=== PATIENT | female | born 1990 | race African-American/Black ===

== ENCOUNTER 2020-11-11 19:31 | Emergency (ER) | payer MEDICAID ==
[~2020-11-11] VITALS: Ht 154.9 cm; Wt 105.0 kg
[2020-11-11] MEDS ORDERED: NEOM10SO12 LEFT EAR (23:48)
[2020-11-11] MEDS ORDERED: IBUP-2029 MT (23:48)
[2020-11-11] MEDS ORDERED: AMOX-494 MT (23:48)
[2020-11-11 23:57] VITALS: BP 130/85
== END 2020-11-12 00:12 | disposition home or self-care (01) ==
LOC: ER 19:31
DX: H66.92 Otitis media, unspecified, left ear (principal); J45.909 Unspecified asthma, uncomplicated
CPT/HCPCS: 81025; 99283; Z7610

== ENCOUNTER 2021-04-01 18:38 | Emergency (ER) | payer MEDICAID ==
[~2021-04-01] VITALS: Ht 154.9 cm; Wt 120.0 kg
[~2021-04-01 18:38] MED LIST: AMOX-494 MT; IBUP-2029 MT; NEOM10SO12 LEFT EAR
[2021-04-01 21:34] VITALS: BP 120/80
== END 2021-04-01 21:35 | disposition home or self-care (01) ==
LOC: ER 18:38
DX: R51.9 Headache, unspecified (principal); F17.210 Nicotine dependence, cigarettes, uncomplicated; J45.909 Unspecified asthma, uncomplicated; Z71.6 Tobacco abuse counseling
CPT/HCPCS: 87070; 87430; 99283

== ENCOUNTER 2024-06-25 12:21 | Emergency (ER) | payer MEDICAID ==
[~2024-06-25] VITALS: Ht 157.5 cm; Wt 113.0 kg
[~2024-06-25 12:21] MED LIST changes: -NEOM10SO12 LEFT EAR; +NEOM10SO24 LEFT EAR
[2024-06-25 12:57] VITALS: O2SAT 100
[2024-06-25] MEDS ORDERED: ALBU18HF2 IH (15:32)
[2024-06-25 16:00] VITALS: BP 123/80; PULSE 88; RESP 18; TEMP 36.55848; O2SAT 100
== END 2024-06-25 16:00 | disposition home or self-care (01) ==
LOC: ER 12:21
DX: J45.909 Unspecified asthma, uncomplicated (principal); Z76.0 Encounter for issue of repeat prescription
CPT/HCPCS: 99281